=== PATIENT | male | born 1995 | race Caucasian/White ===

== ENCOUNTER 2017-06-15 17:45 | Emergency (ER) | payer OTHER ==
[~2017-06-15] VITALS: Ht 177.8 cm; Wt 122.5 kg
[2017-06-15 18:00] VITALS: BP 140/83
--- NOTE | 2017-06-15 18:01 | ER Report ---
History and Physical Time Seen By MD: 17:50 Hx. of Stated Complaint: PATIENT HURT HIS LEFT ANKLE WHILE SNOWBOARDING HPI/ROS CHIEF COMPLAINT: Left ankle injury HISTORY OF PRESENT ILLNESS: Patient is a 21-year-old male who presents the ED with complaint of left ankle injury that occurred about 2 hours ago. He states that he was snowboarding and fell and twisted his left ankle. He has noticed some swelling. He has not taken any medication and has not applied ice. REVIEW OF SYSTEMS: Respiratory: No cough, no dyspnea. Cardiovascular: No chest pain, no palpitations. Gastrointestinal: No vomiting, no abdominal pain. Musculoskeletal: See history of present illness. Allergies: Coded Allergies: No Known Drug Allergies (Unverified , 06/15/17) Reviewed Nurses Notes: Yes Old Medical Records Reviewed: Yes Hx Substance Use Disorder: No Hx Alcohol Use: No Constitutional Vital Sign - Last 24 Hours 06/15/17 17:52 Temp 97.8 Pulse 87 Resp 20 B/P (MAP) 154/99 Pulse Ox 96 O2 Delivery Room Air Physical Exam General Appearance: The patient is alert, has no immediate need for airway protection and no current signs of toxicity. Pt appears to be no acute distress. Respiratory: Chest is non tender, lungs are clear to auscultation. Cardiac: regular rate and rhythm Musculoskeletal: Neck: Neck is supple and non tender. There is left lateral ankle pain with palpation. There is swelling noted in this area. PT and DP pulses are 2+ with normal capillary refill. Normal sensation. Patient has full range of motion with some pain. Skin: No rashes or lesions. DIFFERENTIAL DIAGNOSIS: After history and physical exam differential diagnosis was considered for left ankle injury including fracture, sprain, contusion. This is in a incomplete list. Medical Decision Making EKG/Imaging Imaging Left Ankle Xrays: IMPRESSION: 1. Nondisplaced fracture of the distal left fibula. Report Dictated By: Tomasz Miller at 06/15/2017 6:15 PM Report E-Signed By: Tomasz Miller at 06/15/2017 6:17 PM ED Course/Re-evaluation ED Course Will obtain left ankle xrays. 06/15/2017 6:26:39 pm - discussed ankle x-rays with patient. It appears that he does have a distal fibula fracture in his left ankle. Will place him in a boot and crutches. Advised follow-up with orthopedic surgery. Decision to Disposition Date: Jun 15, 2017 Decision to Disposition Time: 18:27 Depart Departure Latest Vital Signs Vital Signs Date Time Temp Pulse Resp B/P (MAP) Pulse Ox O2 Delivery O2 Flow Rate FiO2 06/15/17 17:52 97.8 87 20 154/99 96 Room Air Impression: Primary Impression: Fracture of distal fibula Condition: Improved Disposition: HOME OR SELF-CARE Referrals: [facility] Patient Instructions: Ankle Fracture (ED) Additional Instructions: Rest, ice, elevate. Use boot and crutches. Follow-up with orthopedic surgery in next 2-3 days. If having worsening concerning symptoms may return the Emergency Department. Problem Qualifiers Primary Impression: Fracture of distal fibula Encounter type: initial encounter Fracture type: closed Fracture morphology : unspecified fracture morphology Laterality: left Qualified Codes: S82.832A - Other fracture of upper and lower end of left fibula, initial encounter for closed fracture RUBEN SANTIAGO PA-C Jun 15, 2017 18:01
--- NOTE | 2017-06-15 18:20 | RADIOLOGY IMAGING REPORT ---
FACILITY: [facility] PATIENT NAME: Jomar Nino : 1995 MR: [id number] V: [id number] EXAM DATE: ORDERING PHYSICIAN: RUBEN SANTIAGO TECHNOLOGIST: Location: [facility] - [place] Patient: Jomar Nino : 1995 Visit/Account:[id number] Date of Sevice: 06/15/2017 ANKLE 3 VIEW MIN LEFT Indication: Left ankle pain after injury. Comparison: None Available Findings: 3 views left ankle shows nondisplaced fracture of the distal fibula. No other indication of fracture or dislocation. No bony lesions or periosteal abnormality. Soft tissue swelling without radiopaque fo reign body. IMPRESSION: 1. Nondisplaced fracture of the distal left fibula. Report Dictated By: Tomasz Miller at 06/15/2017 6:15 PM Report E-Signed By: Tomasz Miller at 06/15/2017 6:17 PM WSN:[id number]
== END 2017-06-15 18:37 | disposition home or self-care (01) ==
LOC: ER 17:59
DX: S82.832A Other fracture of upper and lower end of left fibula, initial encounter for closed fracture (principal)
CPT/HCPCS: 99283